=== PATIENT | female | born 2000 | race Caucasian/White ===

== ENCOUNTER 2018-02-27 08:11 | Emergency (ER) | payer OTHER ==
--- NOTE | 2018-02-27 09:15 | ER ---
Nurse's Notes [facility] Name: Tea Garcia Age: 17 yrs Sex: Female : 2000 Arrival Date: 02/27/2018 Time: 08:18 Bed 14 Private MD: None, None Diagnosis: Other sprain of right foot Presentation: 02/27 08:20 Presenting complaint: Patient states: "I missed a step going downstairs and rolled my aa5 ankle about a week ago". pt c/o right ankle pain. 08:20 Transition of care: patient was not received from another setting of care. Onset of aa5 symptoms was February 2018. Risk Assessment: Do you want to hurt yourself or someone else? Patient reports no desire to harm self or others. Initial Sepsis Screen: Does the patient meet any 2 criteria? No. Patient's initial sepsis screen is negative. Does the patient have a suspected source of infection? No. Patient's initial sepsis screen is negative. Care prior to arrival: None. 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 - Social history:: Smoking status: Patient/guardian denies using tobacco. - Ebola Screening: : No symptoms or risks identified at this time. Screenin:25 Abuse screen: Denies threats or abuse. Nutritional screening: No deficits noted. aa5 Tuberculosis screening: No symptoms or risk factors identified. Fall Risk None identified. Assessment: 08:25 General: Appears comfortable, Behavior is calm, cooperative. Pain: Complains of pain in aa5 right ankle Pain does not radiate. Pain currently is 7 out of 10 on a pain scale. Quality of pain is described as throbbing, Pain began 1 week ago Is continuous, Alleviated by rest, Aggravated by increased activity, weight bearing. Neuro: Level of Consciousness is awake, alert, obeys commands, Oriented to person, place, time, situation. Cardiovascular: Pulses are 3+ in right posterior tibial artery and right dorsalis pedis artery. Respiratory: Airway is patent Respiratory effort is even, unlabored, Respiratory pattern is regular, symmetrical. GI: No signs and/or symptoms were reported involving the gastrointestinal system. : No signs and/or symptoms were reported regarding the genitourinary system. EENT: No signs and/or symptoms were reported regarding the EENT system. Derm: Skin is dry, Skin is normal, Skin temperature is warm. Musculoskeletal: Range of motion: intact in all extremities, Mild swelling noted to right ankle. 09:25 Reassessment: Bao wrap applied to right ankle . aa5 09:35 Neuro: Level of Consciousness is awake, alert, obeys commands, Oriented to person, aa5 place, time, situation. Respiratory: Airway is patent Respiratory effort is even, unlabored, Respiratory pattern is regular, symmetrical. Derm: Skin is dry, Skin is normal, Skin temperature is warm. Vital Signs: 08:20 BP 178 / 105; Pulse 90; Resp 16 S; Temp 98.8(TE); Pulse Ox 99% on R/A; Weight 113.4 kg aa5 (R); Height 5 ft. 7 in. (170.18 cm) (R); Pain 7/10; 09:25 BP 162 / 93; Pulse 80; Resp 18 S; Pulse Ox 98% on R/A; Pain 7/10; aa5 08:20 Body Mass Index 39.16 (113.40 kg, 170.18 cm) aa5 ED Course: 08:18 Patient arrived in ED. mr 08:18 None, None is Private Physician. mr 08:20 Arm band placed on Patient placed in an exam room. aa5 08:20 Patient has correct armband on for positive identification. Bed in low position. Call aa5 light in reach. Side rails up X 1. 08:22 Alley Abarca FNP-C is [facility]. snw 08:22 Giovanni Justice MD is Attending Physician. snw 08:32 Rosana Cates, MAMIE is Primary Nurse. aa5 08:37 Triage completed. aa5 08:41 No provider procedures requiring assistance completed. aa5 08:49 Foot Right 3 View XRAY In Process Unspecified. EDMS 08:49 X-ray completed. Portable x-ray completed in exam room. Patient tolerated procedure jb2 well. 09:35 Patient did not have IV access during this emergency room visit. aa5 Administered Medications: 09:30 Drug: Motrin 400 mg Route: PO; aa5 09:30 Follow up: Response: Medication administered at discharge. aa5 Outcome: 09:15 Discharge ordered by . oneil 09:35 Discharged to home ambulatory. aa5 09:35 Condition: stable 09:35 Discharge instructions given to patient, Instructed on discharge instructions, follow up and referral plans. medication usage, Demonstrated understanding of instructions, follow-up care, medications, Prescriptions given X 1, Pt was also instructed by NON LINEAR EDITOR to follow-up about high BP readings. 09:36 Patient left the ED. aa5 Signatures: Dispatcher [employer] EDMS Alley Abarca, TRUST ACCOUNTS SUPERVISOR-C TRUST ACCOUNTS SUPERVISOR-Wendi Perea Jesse jb2 Calderon, Audri, RN RN aa5
--- NOTE | 2018-02-27 09:15 | EDPHYS ---
Physician Documentation [facility] Name: Tea Garcia Age: 17 yrs Sex: Female : 2000 Arrival Date: 02/27/2018 Time: 08:18 Bed 14 Private MD: None, None ED Physician Giovanni Justice HPI: 02/27 08:49 This 17 yrs old Female presents to ER via Ambulatory with complaints of Ankle snw Injury. 08:49 The patient presents with decreased range of motion, pain. The complaints affect the snw right ankle. Onset: The symptoms/episode began/occurred suddenly, 1.5 week(s) ago, and became persistent. Context: The problem was sustained at home, resulted from a mis-step by the patient, stairs, The patient can fully bear weight on the affected extremity. the patient is able to ambulate. Associated signs and symptoms: Pertinent positives: swelling. Modifying factors: The symptoms are alleviated by nothing, the symptoms are aggravated by weight bearing. Severity of symptoms: At their worst the symptoms were moderate. The patient has not experienced similar symptoms in the past. 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 - Social history:: Smoking status: Patient/guardian denies using tobacco. - Ebola Screening: : No symptoms or risks identified at this time. ROS: 08:48 Constitutional: Negative for fever, chills, and weight loss, Eyes: Negative for injury, snw pain, redness, and discharge, ENT: Negative for injury, pain, and discharge, Neck: Negative for injury, pain, and swelling, Cardiovascular: Negative for chest pain, palpitations, and edema, Respiratory: Negative for shortness of breath, cough, wheezing, and pleuritic chest pain, Abdomen/GI: Negative for abdominal pain, nausea, vomiting, diarrhea, and constipation, Back: Negative for injury and pain, : Negative for injury, bleeding, discharge, and swelling, Skin: Negative for injury, rash, and discoloration, Neuro: Negative for headache, weakness, numbness, tingling, and seizure, Psych: Negative for depression, anxiety, suicide ideation, homicidal ideation, and hallucinations. 08:48 MS/extremity: Positive for injury or acute deformity, pain, of the lateral side of left foot, lateral side of left heel, left Achilles, arch of left foot and heel of left foot. Exam: 08:46 Constitutional: This is a well developed, well nourished patient who is awake, alert, snw and in no acute distress. Head/Face: Normocephalic, atraumatic. Eyes: Pupils equal round and reactive to light, extra-ocular motions intact. Lids and lashes normal. Conjunctiva and sclera are non-icteric and not injected. Cornea within normal limits. Periorbital areas with no swelling, redness, or edema. ENT: Nares patent. No nasal discharge, no septal abnormalities noted. Tympanic membranes are normal and external auditory canals are clear. Oropharynx with no redness, swelling, or masses, exudates, or evidence of obstruction, uvula midline. Mucous membranes moist. Neck: Trachea midline, no thyromegaly or masses palpated, and no cervical lymphadenopathy. Supple, full range of motion without nuchal rigidity, or vertebral point tenderness. No Meningismus. Chest/axilla: Normal chest wall appearance and motion. Nontender with no deformity. No lesions are appreciated. Cardiovascular: Regular rate and rhythm with a normal S1 and S2. No gallops, murmurs, or rubs. Normal PMI, no JVD. No pulse deficits. Respiratory: Lungs have equal breath sounds bilaterally, clear to auscultation and percussion. No rales, rhonchi or wheezes noted. No increased work of breathing, no retractions or nasal flaring. Abdomen/GI: Soft, non-tender, with normal bowel sounds. No distension or tympany. No guarding or rebound. No evidence of tenderness throughout. Back: No spinal tenderness. No costovertebral tenderness. Full range of motion. Skin: Warm, dry with normal turgor. Normal color with no rashes, no lesions, and no evidence of cellulitis. Neuro: Awake and alert, GCS 15, oriented to person, place, time, and situation. Cranial nerves II-XII grossly intact. Motor strength 5/5 in all extremities. Sensory grossly intact. Cerebellar exam normal. Normal gait. Psych: Awake, alert, with orientation to person, place and time. Behavior, mood, and affect are within normal limits. 08:46 Musculoskeletal/extremity: ROM: no acute changes, to right foot, Circulation is intact in all extremities. Vital Signs: 08:20 BP 178 / 105; Pulse 90; Resp 16 S; Temp 98.8(TE); Pulse Ox 99% on R/A; Weight 113.4 kg aa5 (R); Height 5 ft. 7 in. (170.18 cm) (R); Pain 7/10; 09:25 BP 162 / 93; Pulse 80; Resp 18 S; Pulse Ox 98% on R/A; Pain 7/10; aa5 08:20 Body Mass Index 39.16 (113.40 kg, 170.18 cm) aa5 MDM: 08:22 Patient medically screened. snw 09:19 Data reviewed: vital signs, nurses notes. Data interpreted: Pulse oximetry: on room air snw is 99 %. Interpretation: normal. Counseling: I had a detailed discussion with the patient and/or guardian regarding: the historical points, exam findings, and any diagnostic results supporting the discharge/admit diagnosis, the presence of at least one elevated blood pressure reading (>120/80) during this emergency department visit, radiology results, the need for outpatient follow up, to return to the emergency department if symptoms worsen or persist or if there are any questions or concerns that arise at home. Special discussion: I have referred the patient to see his PCP for further evaluation of high blood pressure. Based on the history and exam findings, there is no indication for further emergent testing or inpatient evaluation. I discussed with the patient/guardian the need to see the orthopedic surgeon for further evaluation of the symptoms. I discussed with the patient/guardian the need to see the primary care provider for further evaluation of the symptoms. 02/27 08:35 Order name: Foot Right 3 View XRAY snw 02/27 09:18 Order name: Bao wrap-joint: right; Complete Time: 09:22 snw Administered Medications: 09:30 Drug: Motrin 400 mg Route: PO; aa5 09:30 Follow up: Response: Medication administered at discharge. aa5 Disposition: 16:58 Co-signature as Attending Physician, Giovanni Justice MD. rn Disposition: 02/27/18 09:15 Discharged to Home. Impression: Other sprain of right foot. - Condition is Stable. - Discharge Instructions: Elastic Bandage and RICE, Foot Sprain, Hypertension. - Prescriptions for Diclofenac Sodium 75 mg Oral Tablet, Delayed Release (E.C.) - take 1 tablet by ORAL route 2 times per day; 15 tablet. - Medication Reconciliation Form, Thank You Letter, Antibiotic Education, Prescription Opioid Use, Work release form form. - Follow up: Private Physician; When: 2 - 3 days; Reason: Recheck today's complaints, Continuance of care, Re-evaluation by your physician. Follow up: Emergency Department; When: As needed; Reason: Worsening of condition. Signatures: Dispatcher [employer] EDMS Alley Abarca, ESTUARDO-C FABRIC DESIGNER-Csnw Giovanni Justice MD MD rn Calderon, Audri, RN RN aa5 Corrections: (The following items were deleted from the chart) 09:36 09:15 02/27/2018 09:15 Discharged to Home. Impression: Other sprain of right foot. aa5 Condition is Stable. Forms are Medication Reconciliation Form, Thank You Letter, Antibiotic Education, Prescription Opioid Use. Follow up: Private Physician; When: 2 - 3 days; Reason: Recheck today's complaints, Continuance of care, Re-evaluation by your physician. Follow up: Emergency Department; When: As needed; Reason: Worsening of condition. snw
[2018-02-27] MEDS ORDERED: IBUPROFEN 400 MG TAB ONE (09:29)
--- NOTE | 2018-02-27 10:45 | RAD REPORT ---
EXAM DESCRIPTION: RAD - Foot Right 3 View - 02/27/2018 8:49 am CLINICAL HISTORY: PAIN Twisting injury to right ankle COMPARISON: No comparisons FINDINGS: No bone or joint abnormality is detected.
== END 2018-02-27 09:36 | disposition home or self-care (01) ==
LOC: ER 08:11
DX: S93.691A Other sprain of right foot, initial encounter (principal); W01.0XXA Fall on same level from slipping, tripping and stumbling without subsequent striking against object, initial encounter; Y93.89 Activity, other specified; Y92.9 Unspecified place or not applicable; Y99.9 Unspecified external cause status
CPT/HCPCS: 99283

== ENCOUNTER 2018-06-07 06:21 | Emergency (ER) | payer OTHER ==
--- OUTSIDE RECORDS SUMMARY | 2018-06-07 06:23 | XMS REPORT ---
:2000 Author Organization e[employer] Care Team Providers Name Role Phone Donya Argueta Provider Role Unavailable Allergies, Adverse Reactions, Alerts Substance Reaction Event Type N.K.D.A. Info Not Available Non Drug Allergy Problems Problem Type Condition Code Onset Dates Condition Status Problem Swelling R60.9 Active Problem Dysthymia F34.1 Active Problem Hypertension I10 Active Assessment Dysthymia F34.1 Active Assessment Hypertension I10 Active Medications Medication Code Code Instructions Start End Date Status Dosage System Date Nexplanon [facility] 75801454773 68 MG Active as directed Subcutaneous Lisinopril [facility] 20866940623 10 MG Orally Jun 03, Active 1 tablet Once a day 2017 Results No Known Results Summary Purpose [employer]ClinicalWorks Submission
--- NOTE | 2018-06-07 06:52 | EDPHYS ---
Physician Documentation [facility] Name: Tea Garcia Age: 17 yrs Sex: Female : 2000 Arrival Date: 06/07/2018 Time: 06:21 Bed 18 Private MD: ED Physician Rober Wheatley HPI: 06/07 06:45 This 17 yrs old Female presents to ER via Ambulatory with complaints of jmm Urinary Problem. 06:45 The patient presents with urinary symptoms, dysuria, frequency, urgency. Onset: The jmm symptoms/episode began/occurred yesterday. Associated signs and symptoms: Pertinent negatives: dysuria, fever, hematuria. This is a 17 year old female with a history of HTN that presents to the ED with dysuria beginning 1 days ago. Patient denies vomiting, fever, or back pain. . 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 - Social history:: Smoking status: Patient/guardian denies using tobacco, Patient/guardian denies using alcohol, street drugs. - Ebola Screening: : Patient negative for fever greater than or equal to 101.5 degrees Fahrenheit, and additional compatible Ebola Virus Disease symptoms Patient denies exposure to infectious person Patient denies travel to an Ebola-affected area in the 21 days before illness onset. ROS: 06:45 Constitutional: Negative for fever, chills, and weight loss, Abdomen/GI: Negative for jmm abdominal pain, nausea, vomiting, diarrhea, and constipation, Back: Negative for injury and pain. 06:45 Neuro: Negative for headache, weakness, numbness, tingling, and seizure, Psych: Negative for depression, anxiety, suicide ideation, homicidal ideation, and hallucinations. 06:45 : Positive for urinary symptoms. 06:45 All other systems are negative. Exam: 06:45 Constitutional: This is a well developed, well nourished patient who is awake, alert, jmm and in no acute distress. Head/Face: atraumatic. Chest/axilla: Normal chest wall appearance and motion. Cardiovascular: Regular rate and rhythm. No edema appreciated Respiratory: Normal respirations, no respiratory distress appreciated 06:45 Abdomen/GI: Inspection: abdomen appears normal, Bowel sounds: normal, Palpation: abdomen is soft and non-tender. 06:45 Back: CVA tenderness, is absent, is noted bilaterally. 06:45 Musculoskeletal/extremity: ROM: intact in all extremities, full active range of motion. 06:45 Skin: Appearance: Color: normal in color. 06:45 Neuro: Orientation: is normal, Mentation: is normal, Memory: is normal. 06:45 Psych: Behavior/mood is pleasant, cooperative. Vital Signs: 06:31 BP 145 / 77; Pulse 94; Resp 16; Temp 98.5(O); Pulse Ox 100% ; Weight 99.79 kg; Height 5 ao ft. 6 in. (167.64 cm); Pain 0/10; 06:31 Body Mass Index 35.51 (99.79 kg, 167.64 cm) ao MDM: 06:43 Patient medically screened. [facility] 06:45 Data reviewed: vital signs, nurses notes. Counseling: I had a detailed discussion with royal the patient and/or guardian regarding: the historical points, exam findings, and any diagnostic results supporting the discharge/admit diagnosis, lab results, the need for outpatient follow up, to return to the emergency department if symptoms worsen or persist or if there are any questions or concerns that arise at home. ED course: Patient's abd is soft, I do not suspect appenditicitis. Given early appendicitis return precautions. No CVA tenderness, non toxic in appearance. Patient will be prescribed oral antibiotics. Given strict return precautions. Patient understood and agrees with the plan of care. . 06/07 06:48 Order name: Urine Dipstick--Ancillary (enter results); Complete Time: 07:06 [facility] 06/07 06:48 Order name: Urine --Ancillary (enter results); Complete Time: 07:06 [facility] 06/07 06:44 Order name: Urine Test (obtain specimen); Complete Time: 06:45 [facility] 06/07 06:44 Order name: Urine Dipstick-Ancillary (obtain specimen); Complete Time: 06:45 [facility] Administered Medications: No medications were administered Disposition: 06/07/18 06:51 Discharged to Home. Impression: Urinary tract infection, site not specified. - Condition is Stable. - Discharge Instructions: Urinary Tract Infection, Adult. - Prescriptions for Bactrim DS 800- 160 mg Oral Tablet - take 1 tablet by ORAL route every 12 hours for 7 days; 14 tablet. - Medication Reconciliation Form, Thank You Letter, Antibiotic Education, Prescription Opioid Use form. - Follow up: Private Physician; When: 2 - 3 days; Reason: Recheck today's complaints, Continuance of care, Re-evaluation by your physician. Signatures: Dispatcher [employer] EDKS Chidi Friedman PA PA jmm Ortiz, Alex, RN RN Brenden Burrows RN RN jb4 Corrections: (The following items were deleted from the chart) 06:58 06:51 06/07/2018 06:51 Discharged to Home. Impression: Urinary tract infection, site jb4 not specified. Condition is Stable. Forms are Medication Reconciliation Form, Thank You Letter, Antibiotic Education, Prescription Opioid Use. Follow up: Private Physician; When: 2 - 3 days; Reason: Recheck today's complaints, Continuance of care, Re-evaluation by your physician. royal
--- NOTE | 2018-06-07 06:52 | ER ---
Nurse's Notes [facility] Name: Tea Garcia Age: 17 yrs Sex: Female : 2000 Arrival Date: 06/07/2018 Time: 06:21 Bed 18 Private MD: Diagnosis: Urinary tract infection, site not specified Presentation: 06/07 06:29 Presenting complaint: Patient states: Patient thinks is having an UTI. Patient has ao urinary frequency and burning. Patient also report side pain. Transition of care: patient was not received from another setting of care. Onset of symptoms is unknown. Risk Assessment: Do you want to hurt yourself or someone else? Patient reports no desire to harm self or others. Initial Sepsis Screen: Does the patient meet any 2 criteria? No. Patient's initial sepsis screen is negative. Does the patient have a suspected source of infection? No. Patient's initial sepsis screen is negative. Care prior to arrival: None. 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 - Social history:: Smoking status: Patient/guardian denies using tobacco, Patient/guardian denies using alcohol, street drugs. - Ebola Screening: : Patient negative for fever greater than or equal to 101.5 degrees Fahrenheit, and additional compatible Ebola Virus Disease symptoms Patient denies exposure to infectious person Patient denies travel to an Ebola-affected area in the 21 days before illness onset. Screenin:34 Abuse screen: Denies threats or abuse. Denies injuries from another. Nutritional ao screening: No deficits noted. Tuberculosis screening: No symptoms or risk factors identified. Fall Risk None identified. Assessment: 06:45 General: Appears in no apparent distress. comfortable, Behavior is calm, cooperative, jb4 appropriate for age. Pain: Denies pain. Neuro: Level of Consciousness is awake, alert, obeys commands, Oriented to person, place, time, situation. Cardiovascular: Patient's skin is warm and dry. Respiratory: Airway is patent Respiratory effort is even, unlabored, Respiratory pattern is regular, symmetrical. GI: No signs and/or symptoms were reported involving the gastrointestinal system. : Urine is cloudy, Last void was June 07, 2018. at 06:46. Reports burning with urination, since 06/04/18 pain with urination, urinary frequency, since 06/04/18. EENT: No signs and/or symptoms were reported regarding the EENT system. Derm: Skin is intact, Skin is pink, warm \T\ dry. Musculoskeletal: Circulation, motion, and sensation intact. Vital Signs: 06:31 BP 145 / 77; Pulse 94; Resp 16; Temp 98.5(O); Pulse Ox 100% ; Weight 99.79 kg; Height 5 ao ft. 6 in. (167.64 cm); Pain 0/10; 06:31 Body Mass Index 35.51 (99.79 kg, 167.64 cm) ao ED Course: 06:21 Patient arrived in ED. es 06:26 Chidi Friedman PA is PHCP. [facility] 06:26 Rober Wheatley MD is Attending Physician. [facility] 06:31 Triage completed. ao 06:31 Arm band placed on right wrist. Patient placed in an exam room, on a stretcher, on ao pulse oximetry, Patient notified of wait time. 06:35 Patient has correct armband on for positive identification. Pulse ox on. NIBP on. ao 06:40 Brenden May, RN is Primary Nurse. jb4 06:57 No provider procedures requiring assistance completed. Patient did not have IV access jb4 during this emergency room visit. Administered Medications: No medications were administered Outcome: 06:51 Discharge ordered by . [facility] 06:57 Discharged to home ambulatory. jb4 06:57 Condition: stable 06:57 Discharge instructions given to patient, Instructed on discharge instructions, follow up and referral plans. medication usage, Demonstrated understanding of instructions, follow-up care, medications, Prescriptions given X 1. 06:58 Patient left the ED. jb4 Signatures: Chidi Friedman PA PA jmm Salyer, Edna es Ortiz, Alex, RN RN ao Brenden May RN RN jb4
[2018-06-07 06:53] LABS: Urine Blood TRACE (NEG); Urine Glucose NEGATIVE (NEG); Urine Protein NEGATIVE (NEG); Urine pH 5.5 (5.0-7.0)
== END 2018-06-07 06:58 | disposition home or self-care (01) ==
LOC: ER 06:21
DX: N39.0 Urinary tract infection, site not specified (principal); I10 Essential (primary) hypertension
CPT/HCPCS: 81003; 81025; 99283